=== PATIENT | male | born 1960 | race Caucasian/White ===

== ENCOUNTER 2017-05-01 22:12 | Emergency (ER) | payer OTHER ==
[~2017-05-01] VITALS: Ht 180.3 cm; Wt 81.8 kg
[2017-05-01] MEDS ORDERED: IBUPROFEN 400 MG TABLET ONE (22:20)
[2017-05-01] MEDS ORDERED: ACETAMINOPHEN 500 MG TABLET ONE (22:20)
[2017-05-01] MEDS ORDERED: ACETAMINOPHEN 500 MG TABLET PO ONE (22:30)
[2017-05-01] MEDS ORDERED: IBUPROFEN 400 MG TABLET PO ONE (22:30)
[2017-05-01 23:43] VITALS: BP 116/74
[2017-05-02 00:09] LABS: INFLUENZA TYPE A POSITIVE FOR TYPE A (NEGATIVE); INFLUENZA TYPE B NEGATIVE FOR TYPE B (NEGATIVE)
== END 2017-05-02 00:27 | disposition home or self-care (01) ==
LOC: EMS 22:15
DX: J11.1 Influenza due to unidentified influenza virus with other respiratory manifestations (principal); K21.9 Gastro-esophageal reflux disease without esophagitis; Z88.8 Allergy status to other drugs, medicaments and biological substances
CPT/HCPCS: 87804; 99285